=== PATIENT | female | born 2000 | race African-American/Black ===

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

== ENCOUNTER 2024-09-08 20:26 | Emergency (ER) | payer SELFPAY ==
[~2024-09-08] VITALS: Ht 157.5 cm; Wt 49.0 kg
[2024-09-08 20:45] VITALS: BP 161/95; PULSE 83; RESP 16; TEMP 98; O2SAT 99
== END 2024-09-08 23:30 | disposition left against medical advice (07) ==
LOC: ER 20:26
DX: M54.50 Low back pain, unspecified (principal); Z53.21 Procedure and treatment not carried out due to patient leaving prior to being seen by health care provider
CPT/HCPCS: 81025